=== PATIENT | male | born 2000 | race Caucasian/White ===

== ENCOUNTER 2024-06-11 19:05 | Emergency (ER) | payer OTHER ==
[~2024-06-11] VITALS: Ht 180.3 cm; Wt 99.2 kg
[2024-06-11 22:43] VITALS: BP 150/65; PULSE 95; RESP 16; TEMP 98.6; O2SAT 98
[2024-06-11] MEDS ORDERED: ACET500T58 PO (22:50)
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
== END 2024-06-11 23:03 | disposition home or self-care (01) ==
LOC: ER 19:05
DX: S16.1XXA Strain of muscle, fascia and tendon at neck level, initial encounter (principal); R04.0 Epistaxis; Z79.899 Other long term (current) drug therapy; V43.52XA Car driver injured in collision with other type car in traffic accident, initial encounter; Y93.I9 Activity, other involving external motion; Y92.488 Other paved roadways as the place of occurrence of the external cause; Y99.8 Other external cause status

== ENCOUNTER 2024-07-11 16:08 | Emergency (ER) | payer OTHER ==
[~2024-07-11] VITALS: Ht 177.8 cm; Wt 101.4 kg
[~2024-07-11 16:08] MED LIST: ACET500T58 PO
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
--- NOTE | 2024-07-11 17:05 | DVH ---
EXAM: XY L WRIST 3+ VIEW XRAY CLINICAL HISTORY: [facility] COMPARISON: None TECHNIQUE: XY L WRIST 3+ VIEW XRAY Findings/Impression: 3 views of the left wrist. There is no evidence of an acute fracture, dislocation, blastic, or lytic lesions. No radiopaque foreign bodies. No joint effusion. Mild soft tissue edema.
[2024-07-11 18:41] VITALS: BP 132/78; PULSE 68; RESP 20; TEMP 98.1; O2SAT 100
== END 2024-07-11 18:43 | disposition home or self-care (01) ==
LOC: ER 16:08
DX: M25.532 Pain in left wrist (principal)
CPT/HCPCS: 73110